=== PATIENT | female | born 1935 | race Caucasian/White ===

== ENCOUNTER 2019-01-30 17:43 | Inpatient (IN) | payer MEDICARE, OTHER ==
[~2019-01-30] VITALS: Ht 162.6 cm; Wt 68.1 kg
[2019-02-07 04:00] VITALS: BP 94/46
== END 2019-02-07 12:02 | disposition expired | DRG 853 ==
LOC: CCU 18:29
PROVIDERS: ADMIT Hospitalist; ATTEND Hospitalist
PROC: 30233N1 Transfusion of Nonautologous Red Blood Cells into Peripheral Vein, Percutaneous Approach (ICD-10-PCS; 2019-01-30)
PROC: 03HY32Z Insertion of Monitoring Device into Upper Artery, Percutaneous Approach (ICD-10-PCS; 2019-01-30)
PROC: 0DB80ZZ Excision of Small Intestine, Open Approach (ICD-10-PCS; principal; 2019-01-31)
PROC: [UNRECOGNIZED PROCEDURE] (2019-01-31)
PROC: 5A1955Z Respiratory Ventilation, Greater than 96 Consecutive Hours (ICD-10-PCS; 2019-01-31)
PROC: 0D9670Z Drainage of Stomach with Drainage Device, Via Natural or Artificial Opening (ICD-10-PCS; 2019-01-31)
PROC: 0T9B70Z Drainage of Bladder with Drainage Device, Via Natural or Artificial Opening (ICD-10-PCS; 2019-01-31)
PROC: 02HV33Z Insertion of Infusion Device into Superior Vena Cava, Percutaneous Approach (ICD-10-PCS; 2019-01-31)
PROC: B548ZZA Ultrasonography of Superior Vena Cava, Guidance (ICD-10-PCS; 2019-01-31)
PROC: B5181ZA Fluoroscopy of Superior Vena Cava using Low Osmolar Contrast, Guidance (ICD-10-PCS; 2019-01-31)
PROC: 0DHA3UZ Insertion of Feeding Device into Jejunum, Percutaneous Approach (ICD-10-PCS; 2019-02-02)
PROC: 0D1B0ZK Bypass Ileum to Ascending Colon, Open Approach (ICD-10-PCS; 2019-02-03)
PROC: 0D9670Z Drainage of Stomach with Drainage Device, Via Natural or Artificial Opening (ICD-10-PCS; 2019-02-03)
DX: A41.9 Sepsis, unspecified organism (principal); J96.00 Acute respiratory failure, unspecified whether with hypoxia or hypercapnia; E43 Unspecified severe protein-calorie malnutrition; N17.0 Acute kidney failure with tubular necrosis; K25.6 Chronic or unspecified gastric ulcer with both hemorrhage and perforation; K55.022 Diffuse acute infarction of small intestine; K55.9 Vascular disorder of intestine, unspecified; D62 Acute posthemorrhagic anemia; K22.10 Ulcer of esophagus without bleeding; I50.32 Chronic diastolic (congestive) heart failure; E87.2 Acidosis; Z99.11 Dependence on respirator [ventilator] status; D68.69 Other thrombophilia; R57.9 Shock, unspecified; E87.0 Hyperosmolality and hypernatremia; R65.20 Severe sepsis without septic shock; Z51.5 Encounter for palliative care; I73.9 Peripheral vascular disease, unspecified; I11.0 Hypertensive heart disease with heart failure; Z93.4 Other artificial openings of gastrointestinal tract status; I48.0 Paroxysmal atrial fibrillation; E86.0 Dehydration; I27.20 Pulmonary hypertension, unspecified
CPT/HCPCS: 36415; 36573; 36600; 71045; 80048; 80053; 81001; 82330; 82803; 82947; 82962; 83735; 84100; 84132; 84134; 84295; 84478; 85014; 85018; 85025; 86850; 86900; 86923; 87040; 87070; 87081; 87205; 88304; 88307; 93005; 93306; 94002; 94003; 94640; B4087; C1729; G0378; J0610; J1170; J1644; J1650; J1815; J2248; J2250; J2543; J2704; J2720; J3010; J3360; J3370; J3475; J3480; J7120; J7620; P9045; P9047; C1751; C1757; C1765; C1781; C9113; J0282; J1940; J2060; J2270; J2370; J3490; J7030; J7050; J7060; P9016